=== PATIENT | male | born 1950 | race Asian ===

== ENCOUNTER → 2022-06-23 | Outpatient (CLI) | payer OTHER | END | disposition home or self-care (01) | LOC: MSR 11:39 | PROVIDERS: ATTEND Chiropractor | DX: M76.51 Patellar tendinitis, right knee (principal); M25.862 Other specified joint disorders, left knee; M19.90 Unspecified osteoarthritis, unspecified site | CPT/HCPCS: 73562-TC ==

== ENCOUNTER → 2022-07-10 | Outpatient (CLI) | payer OTHER ==
[2022-07-10 12:27] LABS: FREE T4 (FREE THYROXINE) 0.78 ng/dL (0.76-1.46); THYROID STIMULATING HORMONE 1.55 uIU/mL (0.36-3.74)
== END | disposition home or self-care (01) ==
LOC: LABMN 11:16
PROVIDERS: ATTEND Chiropractor
DX: C73 Malignant neoplasm of thyroid gland (principal)
CPT/HCPCS: 84439; 84443; 84481